=== PATIENT | female | born 1995 | race Caucasian/White ===

== ENCOUNTER 2021-07-05 19:48 | Emergency (ER) | payer OTHER ==
[~2021-07-05] VITALS: Ht 167.6 cm; Wt 77.1 kg
--- NOTE | 2021-07-05 20:08 | NUR ---
BIBS TO ER BED 2. AAOX4. NOT IN RESP DISTRESS. AMBULATORY. CAME IN FOR HEADACHE AND NECK PAIN S/P HEAD TRAUMA 2ND TO SYNCOPAL EPISODE. PT WAS GOING TO THE BATHROOM SAT ON THE TOILET AND NEXT TIME SHE REMEMBERS IS SHE IS ON THE GROUND. AWAITING MD FOR EVAL.
--- NOTE | 2021-07-05 20:32 | NUR ---
pt back from ct
--- NOTE | 2021-07-05 20:58 | NUR ---
Patient discharged to home in stable condition. Written and verbal after care instructions given. Patient verbalizes understanding of instruction.
[2021-07-05 21:13] VITALS: BP 127/81
== END 2021-07-05 20:58 | disposition home or self-care (01) ==
LOC: ER 19:51
DX: S00.83XA Contusion of other part of head, initial encounter (principal); R55 Syncope and collapse; F32.A Depression, unspecified; F41.9 Anxiety disorder, unspecified; F43.10 Post-traumatic stress disorder, unspecified; W18.39XA Other fall on same level, initial encounter; Y93.89 Activity, other specified; Y92.89 Other specified places as the place of occurrence of the external cause; Y99.8 Other external cause status
CPT/HCPCS: 70450-TC